=== PATIENT | male | born 1955 | race Caucasian/White ===

== ENCOUNTER 2019-10-19 08:23 | Outpatient (CLI) | payer MEDICARE, SELFPAY ==
--- NOTE | ~2019-10-19 | CT_ITS ---
EXAMINATION: CT lung screening EXAM DATE: 10/19/2019 09:30 INDICATION: Personal history of nicotine dependence. Right lower lobe 4 mm nodule on prior study. TECHNIQUE: Spiral low dose CT of the chest without contrast. Axial, coronal and sagittal images were reviewed. The dose-length product (DLP) for this examination was 148.67 mGy-cm. The exposure was t ailored according to patient size (auto mA exposure control), and iterative reconstruction (ASIR) was used as additional dose reduction technique. There is no prior study for comparison. FINDINGS: There is mild to moderate emphysema. Some regions of left lung scarring. Several punctate right lower lobe nodules, likely noncalcified granulomas unchanged. Tracheobronchial tree is patent. There is no mediastinal, hilar or axillary lymphadenopathy. Small left pleural effusion. There i s no pneumothorax. Heart normal in size. There is moderate coronary arterial calcification, arter ial sclerosis. Cirrhosis, ascites, splenomegaly at 16 cm. There is mild thoracic spondylosis without osteoblastic or osteolytic lesions identified. Old left rib fractures. Compared to prior study, le ft pleural effusion has decreased in size. IMPRESSION: Lung-RADS category 2, benign appearance or behavior (<1% chance of malignancy); recommend continued LDCT screening in 1 year. Reviewed, dictated and finalized at location A. PROCUREMENT COORDINATOR
--- NOTE | 2019-10-28 15:17 | WPDPFTINT ---
PFT Interpretation PFT Interpretation: DOS: 10/19/2019 REQUESTING: Valentin Rizzo MD REASON FOR TESTING: Tobacco dependence PULMONARY FUNCTION TESTS Spirometry: FEV1 is 83%, normal. FVC 86%, normal. Decreased FEV1% consistent with airflow obstruction. Low [id number]%. No bronchodilator was given. Lung volumes: Normal total lung capacity, 106%. Increased RV 133% consistent with mild air trapping. Increased airway resistance 169%. Diffusion: DLCO 59%, moderately decreased. Flow volume loop: Mild scooping of the expiratory limb. IMPRESSION: Mild airflow obstruction, severe decrease in small airways flows, mild air trapping, moderate diffusion impairment without bronchodilator administration. This pattern may be seen in COPD or asthma/COPD overlap. Patito Patel MD
== END 2019-10-19 08:24 | disposition home or self-care (01) ==
PROVIDERS: PCP Family Medicine; Visit Provider Family Medicine
DX: J44.9 Chronic obstructive pulmonary disease, unspecified (principal); Z72.0 Tobacco use; Z12.2 Encounter for screening for malignant neoplasm of respiratory organs; Z87.891 Personal history of nicotine dependence
CPT/HCPCS: 94375; 94726; 94729; G0297

== ENCOUNTER 2021-01-17 10:58 | Outpatient (CLI) | payer MEDICARE, MEDICAID, SELFPAY ==
--- NOTE | ~2021-01-17 | CT_ITS ---
EXAMINATION: CT lung screening DATE: 01/17/2021 11:24 INDICATION: Personal history of tobacco dependence, current smoker with 30 pack year history TECHNIQUE: Computed tomography (CT) of the chest was performed without intravenous contrast. The dose -length product (DLP) was 125.07 mGy-cm. Automated exposure control and iterative reconstruction tech [email or web address] were employed. COMPARISON: 10/19/2019 FINDINGS: There is a chronic small left pleural effusion. There is lobular pleural thickening along t he diaphragmatic surface on the left as well as the major fissure on the left abutting the lateral th orax. There are innumerable new small pulmonary nodules scattered throughout all lobes of the lungs. The largest is an 8 mm nodule of the lingula. There is mild emphysema. Surgical changes are noted in the left upper lobe. No pathologically enlarged thoracic lymph nodes are identified. The heart size i s normal. Calcified coronary artery atherosclerosis is noted. The liver surface is nodular. There is a large volume of ascites in the visualized upper abdomen. Splenomegaly is noted. There is mild thora cic spondylosis. IMPRESSION: 1. Lung-RADS category 4B: Very suspicious. Findings for which additional diagnostic testing and/or ti ssue sampling is recommended. Pleural biopsy or lung nodule biopsy is recommended. These findings and recommendations were discussed with Dr. Patito Patel MD at 1452 hours on 01/17/2021. Reviewed, dictated and finalized at location A. IMPRESSION: 1. Lung-RADS category 4B: Very suspicious. Findings for which additional diagno stic testing and/or tissue sampling is recommended. Pleural biopsy or lung nodu le biopsy is recommended. These findings and recommendations were discussed wit Dr. Patito Patel MD at 1452 hours on 01/17/2021.
== END 2021-01-17 10:59 | disposition home or self-care (01) ==
PROVIDERS: PCP Family Medicine; Visit Provider Internal Medicine Critical Care Medicine
DX: Z12.2 Encounter for screening for malignant neoplasm of respiratory organs (principal); Z87.891 Personal history of nicotine dependence; R91.8 Other nonspecific abnormal finding of lung field
CPT/HCPCS: 71271

== ENCOUNTER → 2021-01-29 04:44 | Outpatient (CLI) | payer MEDICARE, MEDICAID, SELFPAY ==
[2021-01-29 20:06] LABS: SARS-CoV-2 RNA PCR Negative
== END ==
PROVIDERS: PCP Family Medicine; Visit Provider Family Medicine
DX: Z01.812 Encounter for preprocedural laboratory examination (principal); Z20.822 Contact with and (suspected) exposure to COVID-19
CPT/HCPCS: C9803; U0003; U0005

== ENCOUNTER 2021-02-01 08:43 | Outpatient (CLI) | payer MEDICARE, MEDICAID, SELFPAY ==
[2021-01-18 11:26] VITALS: BMI 24.3
[2021-02-01] VITALS (9 sets, daily range): BP systolic 108–128; BP diastolic 60–69; PULSE 51–64; RESP 18–20; O2SAT 98–100
--- NOTE | ~2021-02-01 | XR_ITS ---
EXAMINATION: XR chest 1V DATE: 02/01/2021 10:22 INDICATION: Left lung nodule status post percutaneous biopsy. TECHNIQUE: A single frontal view of the chest was obtained. COMPARISON: Chest single view 09/17/2018, chest CT 01/17/2021 FINDINGS: There are lucencies in the lungs, consistent with emphysema. There are changes of prior lef t-sided thoracotomy with surgical clips and rib defect. There is nodular thickening of the pleura in left lung with a lower lung predominance. No pleural effusion or pneumothorax. The heart size is norm al. IMPRESSION: 1. Nodular thickening of the left lung pleura. No pneumothorax status post percutaneous biopsy. 2. Emphysema. Reviewed, dictated and finalized at location A. IMPRESSION: 1. Nodular thickening of the left lung pleura. No pneumothorax status post perc utaneous biopsy. 2. Emphysema.
--- NOTE | ~2021-02-01 | US_ITS ---
EXAMINATION: US biopsy lung w/imaging DATE: 02/01/2021 10:28 INDICATION: Left lung mass. TECHNIQUE: The procedure including the risks, benefits, and alternatives was discussed with the patie nt. Risks discussed included bleeding, infection, and pneumothorax. The patient understood the risks and agreed to proceed. The skin overlying the left posterior thorax was prepped and draped in usual s terile fashion. Anesthetic was administered with 1% lidocaine subcutaneously. An 18 gauge core biop sy needle was then used to obtain 3 core biopsy specimens under continuous sonographic guidance. The entry site was cleaned and dressed. There were no immediate complications. FINDINGS: Ultrasound images demonstrate the needle in the thickened parietal pleura of the left poste rior inferior lung. IMPRESSION: 1. Ultrasound-guided core needle biopsy of the thickened parietal pleura of the left posterior inferi or lung. Reviewed, dictated and finalized at location A. IMPRESSION: 1. Ultrasound-guided core needle biopsy of the thickened parietal pleura of the left posterior inferior lung.
[2021-02-01 09:13] LABS: Mean Platelet Volume 11.3 fl (7.4-10.4); Platelet Count Result 136 k/mm3 (150-375)
[2021-02-01 09:20] LABS: INR 1.3; Prothrombin Time 16.3 Seconds (11.1-14.7)
--- NOTE | 2021-02-01 11:15 | SUR.PHASEII ---
1115- Patient's to outpatient recovery room 17 with bottle of tea. This RN doing rounds on patient and found him being non compliant with NPO status taking drinks of tea. Reinforced importance of NPO status for 2 hours status post procedure.
== END 2021-02-01 12:33 | disposition home or self-care (01) ==
PROVIDERS: Radiology Diagnostic Radiology; PCP Family Medicine; Visit Provider Family Medicine
DX: R91.1 Solitary pulmonary nodule (principal); C45.7 Mesothelioma of other sites
CPT/HCPCS: 32408; 36415; 71045; 85049; 85610; 88305; 88313; 88342; C9803; U0003; U0005

== ENCOUNTER 2021-03-14 14:03 | Outpatient (CLI) | payer MEDICARE, MEDICAID, SELFPAY ==
--- NOTE | ~2021-03-14 | PE_ITS ---
EXAMINATION: PET skull to mid thigh DATE: 03/14/2021 15:45 INDICATION: Mesothelioma of left pleural. TECHNIQUE: Blood glucose level was 107 mg/dL. 9.275 mCi of 18-fluorodeoxyglucose (18-FDG) was adminis tered i.v. Low dose computed tomography (CT) images were acquired from the base of the brain to the p roximal thighs for attenuation correction and anatomic localization. Automated exposure control was e mployed. Dose-length product (DLP) was 819 mGy-cm. Positron emission tomography (PET) images were acq uired in the same distribution. COMPARISON: Chest CT 01/17/2021, 10/19/19, CT abdomen and pelvis 05/01/2019 FINDINGS: Head/neck: There are no pathologically enlarged lymph nodes. There are nodules in the thyroid measuri ng up to 14 mm without increased activity, likely not clinically significant. There is severe cervica l spondylosis. Chest: There is mild atelectasis bilaterally. There is a 13 mm part-solid nodule in right upper lobe without increased activity. There are a few scattered nodules in the lungs measuring up to 9 mm witho ut increased activity. There is bulky nodular pleural thickening throughout left hemithorax with maxi mum SUV of 9.6. No pleural effusion. The heart size is normal. There are coronary artery calcificatio ns. No pericardial effusion. There is mild mediastinal lymphadenopathy without increased activity, st able from 10/19/19, likely reactive. There is ectasia of ascending aorta measuring 4.1 cm. Abdomen/pelvis/proximal thighs: The liver demonstrates a nodular surface contour, consistent with cir rhosis. There is moderate splenomegaly. The gallbladder is absent. The pancreas, adrenal glands, and right kidney are normal. There is a 3.4 cm cyst in left kidney. There are changes of left inguinal he rnia repair. There is diverticulosis of the colon without evidence of diverticulitis. There are no di lated loops of bowel. There is a large volume of ascites. There is stranding in the intra-abdominal f at, likely edema. There are no pathologically enlarged lymph nodes. There is internal fixation of lef t acetabulum and proximal left femur. There is severe lumbar spondylosis. IMPRESSION: 1. Bulky nodular pleural thickening in left hemithorax with increased activity, stable from 01/17/21, c onsistent with mesothelioma. 2. Pulmonary nodules without increased activity, stable from 01/17/21 and new from 10/19/2019, consistent with metastatic disease. 3. Large volume of ascites. 4. Cirrhosis of the liver with portal venous hypertension. Reviewed, dictated and finalized at location A. IMPRESSION: 1. Bulky nodular pleural thickening in left hemithorax with increased activity, stable from 01/17/21, consistent with mesothelioma. 2. Pulmonary nodules without increased activity, stable from 01/17/21 and new fro m 10/19/2019, consistent with metastatic disease. 3. Large volume of ascites. 4. Cirrhosis of the liver with portal venous hypertension.
[2021-03-14 14:23] LABS: Glucose Point of Care 107 mg/dl (65-105)
== END 2021-03-14 14:04 | disposition home or self-care (01) ==
LOC: ANHIMG 14:10
PROVIDERS: PCP Family Medicine; Visit Provider Internal Medicine
DX: C45.0 Mesothelioma of pleura (principal); R91.8 Other nonspecific abnormal finding of lung field; R18.8 Other ascites; K74.60 Unspecified cirrhosis of liver; K76.6 Portal hypertension
CPT/HCPCS: 78815; 82948; A9552